=== PATIENT | female | born 1970 | race Caucasian/White ===

== ENCOUNTER → 2019-02-27 | Outpatient (REF) | payer OTHER | LOC: M LAB REF 02-26 12:14 | PROVIDERS: ATTEND Internal Medicine Gastroenterology | DX: K21.9 Gastro-esophageal reflux disease without esophagitis (principal) ==

== ENCOUNTER → 2020-02-29 | Outpatient (CLI) | payer BC, OTHER ==
--- NOTE | 2020-03-02 16:45 | SLEEPCENT ---
DATE: 02/29/2020 ORDERED BY: Ashley Galaviz Nocturnal polysomnography was performed for evaluation of sleep physiology in this patient with a prior history of obstructive sleep apnea syndrome, who has accomplished significant weight loss. There was 7 hours and 2 minutes of data reviewed. There was 327.5 minutes of sleep identified. Sleep latency was prolonged at 60.5 minutes. REM latency was prolonged at 185 minutes. Sleep architecture was fair with one REM cycle. Some poor progression was appreciated. Overall sleep efficiency was fair at 79.4%. The electrocardiogram showed a sinus rhythm with small complexes. Average heart rate 60 beats per minute. Rate ranged 40-80. EEG showed fairly normal waveforms for wake and sleep. There were 38 respiratory events identified of 10 seconds in duration or greater for an apnea-hypopnea index of 7. The events were primarily obstructive, not exclusive to sleep position, more frequent in stage REM but not exclusive to that stage. Snoring was also noted, and respiratory related arousals occurred 5.5 times per hour. There were oxygen desaturations into the 80s. Some minor limb activity was appreciated. Limb movement arousal index was low. IMPRESSION: Obstructive sleep apnea syndrome (G47.33). Apnea-hypopnea index 7. RECOMMENDATION: The patient should be encouraged to return to the sleep disorder center for CPAP titration. In the interim, alcohol and sedative avoidance should be practiced and caution exercised during the operation of motor vehicles.
== END ==
LOC: M SLEEP 20:00
PROVIDERS: ATTEND Nurse Practitioner Family
DX: G47.33 Obstructive sleep apnea (adult) (pediatric) (principal)

== ENCOUNTER → 2021-08-02 | Outpatient (REF) | payer BC, OTHER | LOC: M LAB REF 21:12 | PROVIDERS: ATTEND Physician Assistant | DX: R53.83 Other fatigue (principal) ==

== ENCOUNTER → 2021-09-08 | Outpatient (CLI) | payer BC, OTHER | LOC: M WHC 13:26 | PROVIDERS: ATTEND Family Medicine | DX: D17.1 Benign lipomatous neoplasm of skin and subcutaneous tissue of trunk (principal); N63.0 Unspecified lump in unspecified breast | CPT/HCPCS: 76642; 77066; G0279 ==

== ENCOUNTER → 2023-08-12 | Outpatient (CLI) | payer BC | LOC: M WHC 07:35 | PROVIDERS: ATTEND Family Medicine | DX: Z12.31 Encounter for screening mammogram for malignant neoplasm of breast (principal); Z13.820 Encounter for screening for osteoporosis; R92.323 Mammographic fibroglandular density, bilateral breasts; M47.816 Spondylosis without myelopathy or radiculopathy, lumbar region; M46.07 Spinal enthesopathy, lumbosacral region; M54.31 Sciatica, right side ==

== ENCOUNTER → 2023-09-20 | Outpatient (REF) | payer BC | LOC: M LAB REF 20:46 | PROVIDERS: ATTEND Family Medicine | DX: E55.9 Vitamin D deficiency, unspecified (principal) ==